=== PATIENT | male | born 1970 | race Caucasian/White ===

== ENCOUNTER 2022-01-15 10:32 | Emergency (ER) | payer OTHER ==
[~2022-01-15] VITALS: Ht 177.8 cm; Wt 85.3 kg
[2022-01-15] MEDS ORDERED: PRAVASTATIN SOD40 MG PO (10:52)
[2022-01-15] MEDS ORDERED: ALLOPURINOL300 MG PO (10:52)
[2022-01-15] MEDS ORDERED: ADULT LOW DOSE81 MG PO (11:25)
--- NOTE | 2022-01-18 12:25 | EKG ---
[facility] [address] [place] [address] Signed Normal sinus rhythm Right axis deviation Nonspecific ST and T wave abnormality Abnormal ECG No previous ECGs available Confirmed by Adelina Duvall MD () on 01/16/2022 11:23:19 PM Electronically Signed By: ADELINA DUVALL MD 01/16/22 2323 Electronically Signed By: ADELINA DUVALL MD 01/18/22 1225 PATIENT NAME: FLIPJENIFER DAYANA Electrocardiogram DATE OF : 74 PHYSICIAN: ADELINA DUVALL MD REPORT #: [id number] REPORT IS CONFIDENTIAL AND NOT TO BE RELEASED WITHOUT AUTHORIZATION
== END 2022-01-15 11:51 | disposition home or self-care (01) ==
LOC: ED 10:32
DX: R07.89 Other chest pain (principal); M10.9 Gout, unspecified; E78.00 Pure hypercholesterolemia, unspecified; Z79.899 Other long term (current) drug therapy
CPT/HCPCS: 36415; 71045; 80053; 83735; 84484; 85025; 93005; 93010; 99285-25